=== PATIENT | female | born 1940 | race Caucasian/White ===

== ENCOUNTER 2022-01-21 08:00 | Outpatient (CLI) | payer MEDICARE, OTHER ==
--- NOTE | 2022-01-22 14:45 | XRAY Report ---
PROCEDURE: Ankle 3 View RT INDICATIONS: RIGHT ANKLE PAIN TECHNIQUE: 3 views of the ankle were acquired. COMPARISON: None FINDINGS: Bones: There is a minimally displaced distal fibular fracture. No other fracture or dislocation. Soft tissues: There is lateral malleolar soft tissue swelling. There is likely a small tibiotalar katie nt effusion. IMPRESSION: Distal fibular fracture. Reviewed by: Karly Burks MD on 01/22/2022 2:43 PM PDT Approved by: Karly Burks MD on 01/22/2022 2:43 PM PDT Station ID: [id number]
== END 2022-01-21 23:59 | disposition home or self-care (01) ==
LOC: DI.S 08:00
PROVIDERS: ATTEND Physician Assistant
DX: S82.831A Other fracture of upper and lower end of right fibula, initial encounter for closed fracture (principal)